=== PATIENT | female | born 1990 | race American Indian/Alaskan Native ===

== ENCOUNTER 2017-08-15 11:43 | Outpatient (CLI) | payer MEDICAID ==
--- NOTE | 2017-08-15 13:04 | XRay Report ---
Chest 2 views: History: Shortness of breath. Findings: Normal cardiomediastinal silhouette the trachea is midline. No consolidation, pneumothorax or pleural effusion. Impression: No acute cardiopulmonary findings.
== END 2017-08-15 11:44 | disposition home or self-care (01) ==
LOC: XRAY 11:43
PROVIDERS: ATTEND Internal Medicine Critical Care Medicine
DX: R07.9 Chest pain, unspecified (principal); R06.02 Shortness of breath
CPT/HCPCS: 71020

== ENCOUNTER 2018-06-05 02:26 | Emergency (ER) | payer MEDICAID ==
[2018-06-05 02:32] VITALS: BP 127/74
[2018-06-05] MEDS ORDERED: TYLENOL ONE (02:48)
[2018-06-05] MEDS ORDERED: TYLENOL PO ONE (02:50)
--- NOTE | 2018-06-05 07:53 | Emergency Department Report ---
Minor Respiratory - HPI Chief Complaint: Upper Respiratory Infection Stated Complaint: FLU LIKE SYMPTOMS Time Seen by Provider: 06/05/18 07:27 Duration: 3 Days Pain Location: Throat, Other (headache) Severity: severe Minor Respiratory: Yes Sore Throat (no drooling), Yes Ear Pain (ear pain), Yes Fever, No Rhinorrhea, No Able to Tolerate Fluids, No Cough, No Sick Contacts, No Hemoptysis, No Chest Pain, No Shortness of Breath Other History: This is a 27-year-old female presents to emergency room with her family reports that she has been having flulike symptoms to include sore throat headache and earache over the last 3 days with cold sweat. She says she has been taking [id number] Tylenol without any relief. Pain is achy and constant. No alleviating or exacerbating factors. She too ibuprofen at midnight without any relief. Patient had rapid RSV done which is negative. Denies any shortness of breath or chest pain. Denies any nausea or vomiting. Denies any neck pain or stiffness. ED Review of Systems ROS: Stated complaint: FLU LIKE SYMPTOMS Other details as noted in HPI Constitutional: chills, fever Eyes: denies: eye pain, eye discharge, vision change ENT: ear pain, throat pain. denies: epistaxis, congestion Respiratory: denies: cough, shortness of breath, SOB with exertion, SOB at rest , stridor, wheezing Cardiovascular: denies: chest pain, palpitations, edema, syncope Endocrine: no symptoms reported Gastrointestinal: denies: abdominal pain, nausea, diarrhea Genitourinary: denies: urgency, dysuria, frequency, hematuria, discharge Musculoskeletal: denies: back pain, joint swelling, arthralgia Skin: denies: rash, lesions, pruritus Neurological: headache. denies: weakness, numbness, paresthesias, confusion, abnormal gait, vertigo ED Past Medical Hx - Past Medical History Previous Medical History?: Yes Hx Hypertension: Yes Hx Diabetes: Yes Hx Arthritis: Yes - Surgical History Past Surgical History?: Yes Additional Surgical History: - Family History Family history: hypertension - Social History Smoking Status: Never Smoker Substance Use Type: None - Medications Home Medications: Home Medications Medication Instructions Recorded Confirmed Last Taken Type Clindamycin [Clindamycin CAP] 300 mg PO Q8H 10 Days #30 cap 07/27/18 Unknown Rx Ibuprofen [Motrin] 600 mg PO Q8H PRN #12 tablet 06/05/18 Unknown Rx Minor Respiratory Exam - Exam General: Vital signs noted. No distress. Alert and acting appropriately. This is a 27-year-old female well-nourished well-developed in no acute distress. HEENT: Yes Moist Mucous Membranes (uvula midline and oral airways patent), No Pharyngeal Erythema, No Pharyngeal Exudates, No Rhinorrhea, No Conjuctival Injection, No Frontal Tenderness, No Maxillary Tenderness Ear: Neither TM Bulge, Neither TM Erythema, Neither EAC Pain, Neither EAC Discharge Neck: Yes Adenopathy (anterior, anterior bilaterally), Yes Supple (full range of motion and no C-spine tenderness) Lungs: Yes Good Air Exchange (CTAB), No Wheezes, No Ronchi, No Stridor, No Cough , No Labored Respirations, No Retractions, No Use of Accessory Muscles, No Other Abnormal Lung Sounds Heart: Yes Regular (tachycardic at 111), No Murmur Abdomen: Yes Normal Bowel Sounds (in all quadrants), No Tenderness, No Peritoneal Signs Skin: No Rash, No Edema Neurologic: Alert and oriented 3, GCS of 15, normal gait, normal speech and no facial drooping. Musculoskeletal: Unremarkable. ED Course Vital Signs 06/05/18 06/05/18 06/05/18 02:25 02:39 03:00 Temperature 102.2 F H 102.2 F H Pulse Rate 111 H Respiratory 18 18 Rate Blood Pressure 127/74 O2 Sat by Pulse 97 Oximetry 06/05/18 06:16 Temperature 99.3 F Pulse Rate 89 Respiratory 18 Rate Blood Pressure O2 Sat by Pulse 98 Oximetry - Reevaluation(s) Reevaluation #1: 06/05/18 08:36 She received Tylenol 1 g at 2:51 AM and she says she still has a headache and sore throat. Fever and heart rate is better. She received Motrin 800 mg at 7:55 AM. This was to cover headache and sore throat or positive relief. She is able to tolerate oral fluid. ED Medical Decision Making - Medical Decision Making His is a 27-year-old female here reported headache, fever and right-sided sore throat over the last 3 days. She is here to be evaluated. Was examined by myself and she had exudative oropharynx with mild swelling and erythema, uvula midline and oral airways patent. RSV was ordered by previous provided which was negative. This was communicated to patient. Mouth is moist. No drooling. Bilateral TM pearly bennett and bilaterally before meals without any redness swelling or drainage. Head exam is normal and neurological exam is normal. Neck with positive; lymph node bilaterally and no C-spine tenderness and she has full range of motion otherwise all exams or normal. Current finding and with absence of cough based on [facility] criteria patient with exudative pharyngitis, she also has headache, fever and enlarged lymph nodes. She was given Tylenol 1 g by mouth in emergency room which relieved her headache momentarily. Her vital signs are stable she is a febrile she was also given another 800 mg by mouth of Motrin in emergency room. I discussed her diagnosis and treatment plan and she voiced understanding. Exudative pharyngitis- will discharge home on clindamycin and encouraged to gargle warm salt water Lymphadenopathy , cervical-resolve after pharyngitis is cleared Headache-better she received Motrin 800 mg at 7:55 AM and Tylenol 1 g by mouth at 2:55 AM this morning. Fever in adults-adequate Tylenol and Motrin. She is able to tolerate fluids. We will discharge home and Motrin Patient is stable, discharged home with her family. Vital signs stable she is a febrile and she says she is feeling better. I discussed the patient that she needs to follow-up with her primary care physician in 3 days follow-up with strep throat and she voiced understanding. I discussed with her that if her symptoms worsens to return to the emergency room. She voiced understanding. Patient discharged home with prescription for Motrin and clindamycin. - Differential Diagnosis STEERER, exudative pharyngitis, rhinitis, sinusitis, viral syndrome Critical care attestation.: If time is entered above; I have spent that time in minutes in the direct care of this critically ill patient, excluding procedure time. ED Disposition Clinical Impression: Exudative pharyngitis, Fever in adult Headache Qualifiers: Headache type: unspecified Headache chronicity pattern: episodic headache Intractability: not intractable Qualified Code(s): R51 - Headache Disposition: DC-01 TO HOME OR SELFCARE Is pt being admited?: No Does the pt Need Aspirin: No Condition: Stable Instructions: Strep Throat (ED), Acute Headache (ED), Fever in Adults (ED) Additional Instructions: Please take antibiotic as prescribed Follow-up with primary care physician in 3 days Take Motrin as prescribed for pain but take with food If your condition worsens to include difficulty breathing, swallowing, chest pain, nausea and vomiting and fever does not relief with Motrin please return to the emergency room ROSA. Gargle with warm salt water and this will help to relieve sore throat Referrals: SKIP LOMBARDI MD [Primary Care Provider] - 06/08/18 Forms: Work/School Release Form(ED)
[2018-06-05] MEDS ORDERED: MOTRIN PO ONE (07:54)
== END 2018-06-05 08:57 | disposition home or self-care (01) ==
LOC: ED 02:26
DX: J02.9 Acute pharyngitis, unspecified (principal); R51 Headache; R50.9 Fever, unspecified; I10 Essential (primary) hypertension; E11.9 Type 2 diabetes mellitus without complications; M19.90 Unspecified osteoarthritis, unspecified site
CPT/HCPCS: 87491; 99283